=== PATIENT | male | born 1985 | race American Indian/Alaskan Native ===

== ENCOUNTER 2016-04-08 19:13 | Emergency (ER) | payer OTHER ==
[2016-04-08 19:28] VITALS: BP 129/75; PULSE 101; TEMP 98.4; BMI 25.8
--- NOTE | 2016-04-08 21:30 | PDOC ---
History of Present Illness - General Chief Complaint: Pain Stated Complaint: PAIN Time Seen by Provider: 04/08/16 20:05 History Source: Patient Exam Limitations: No Limitations - History of Present Illness Initial Comments: 04/08/16 21:25 CC continued pain to right shoulder post fall onto same during soccer x 10 days ago Occurred: reports: just prior to arrival, last week Severity: reports: moderate Pain Location: reports: upper extremity Method of Injury: Yes: direct blow, fall Past History - Past Medical History Allergies/Adverse Reactions: Allergies Allergy/AdvReac Type Severity Reaction Status Date / Time No Known Drug Allergies Allergy Verified 04/08/16 19:27 Home Medications: Ambulatory Orders NK [No Known Home Medication] 04/08/16 Other medical history: denies - Immunization History Immunization Up to Date: Yes - Psycho/Social/Smoking Cessation Hx Suicidal Ideation: No Smoking History: Never smoked Have you smoked in the past 12 months: Yes Number of Cigarettes Smoked Daily: 10 Information on smoking cessation initiated: No 'Breaking Loose' booklet given: 03/13/16 Hx Alcohol Use: No Drug/Substance Use Hx: No Substance Use Type: None Review of Systems - Review of Systems Constitutional: No: Symptoms Reported, Chills, Fever, Malaise HEENTM: No: Symptoms Reported Respiratory: No: Symptoms reported Cardiac (ROS): No: Symptoms Reported : No: Symptoms Reported Musculoskeletal: Yes: Joint Pain, Muscle Pain, Muscle Weakness. No: Joint Swelling Integumentary: No: Symptoms Reported, Rash Neurological: No: Symptoms reported *Physical Exam - Vital Signs Last Vital Signs Temp Pulse Resp BP Pulse Ox 98.4 F 101 H 20 129/75 96 04/08/16 19:24 04/08/16 19:24 04/08/16 19:24 04/08/16 19:24 04/08/16 19:24 - Physical Exam General Appearance: Yes: Appropriately Dressed. No: Apparent Distress HEENT: positive: TMs Normal, Pharynx Normal Neck: positive: Supple. negative: Tender, Rigid, Decreased range of motion, Rigidity Respiratory/Chest: positive: Lungs Clear. negative: Chest Tender, Accessory Muscle Use Musculoskeletal: positive: Decreased Range of Motion (tender prox humerus; limited ROM carlitos on active Abduction), Other (tender proximal ) Integumentary: positive: Normal Color, Dry, Warm Neurologic: positive: Other (N/V intact) ED Treatment Course - RADIOLOGY Radiology Studies Ordered: Category Date Time Status ELBOW-RIGHT [RAD] Stat Radiology 04/08/16 20:14 Completed SHOULDER-RIGHT [RAD] Stat Radiology 04/08/16 20:14 Completed Medical Decision Making - Medical Decision Making 04/08/16 21:29 please follow up with dr reich 1 week if no better *DC/Admit/Observation/Transfer Diagnosis at time of Disposition: Strain of right shoulder Qualifiers: Encounter type: initial encounter Qualified Code(s): S46.911A - Strain of unspecified muscle, fascia and tendon at shoulder and upper arm level, right arm , initial encounter - Discharge Dispostion Disposition: HOME Condition at time of disposition: Stable Admit: No - Patient Instructions Additional Instructions: Please follow with Dr Reich 1 week if no better; naprosyn 2 times daily; range area daily, 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
== END 2016-04-08 21:34 | disposition home or self-care (01) ==
LOC: JERFT 19:13
DX: S46.911A Strain of unspecified muscle, fascia and tendon at shoulder and upper arm level, right arm, initial encounter (principal); W18.39XA Other fall on same level, initial encounter; Y93.66 Activity, soccer; Y92.322 Soccer field as the place of occurrence of the external cause
CPT/HCPCS: 73030-TC-RT; 73070-TC-RT; 99281-25

== ENCOUNTER 2018-05-01 14:24 | Emergency (ER) | payer OTHER ==
[2018-05-01 14:49] VITALS: BP 137/79; PULSE 90; TEMP 98.2; BMI 24.3
--- NOTE | 2018-05-01 15:55 | PDOC ---
History of Present Illness - General Chief Complaint: Eye Problem Stated Complaint: EYE / HEAD PAIN Time Seen by Provider: 05/01/18 15:18 History Source: Patient Exam Limitations: No Limitations - History of Present Illness Initial Comments: 05/01/18 15:51 HISTORY OF PRESENT ILLNESS: 32-year-old male denies medical history presents emergency department for evaluation of bilateral eye redness and pain starting yesterday. Patient reports he was going about his usual parents then went for a 15 minute run outdoors when he began to experience eye tearing, eye redness and periorbital pain. Reports photophobia. He denies blurry vision, foreign body sensation in his eyes, fevers, chills. No recent travel or sick contacts. PAST MEDICAL HISTORY: Denies past medical history SURGICAL HISTORY: Denies ALLERGIES: No known drug allergies REVIEW OF SYSTEMS General/Constitutional: Denies fever or chills. Denies weakness, weight change. HEENT:see hpi Cardiovascular: Denies chest pain or shortness of breath. Respiratory: Denies cough, wheezing, or hemoptysis. Gastrointestinal: Denies nausea, vomiting, diarrhea or constipation. Denies rectal bleeding. Genitourinary: Denies dysuria, frequency, or change in urination. Musculoskeletal: Denies joint or muscle swelling or pain. Denies neck or back pain. Skin and breasts: Denies rash or easy bruising. Neurologic: Denies headache, vertigo, loss of consciousness, or loss of sensation. Psychiatric: Denies depression or anxiety. Endocrine: Denies increased thirst. Denies abnormal weight change. Hematologic/Lymphatic: Denies anemia, easy bleeding, or history of blood clots. Allergic/Immunologic: Denies hives or skin allergy. Denies latex allergy. PHYSICAL EXAM General Appearance: Well-appearing, appropriately dressed. No apparent distress , no intoxication. HEENT: EOMI, PERRLA, normal ENT inspection, normal voice, TMs normal, pharynx normal. No conjunctival pallor. No photophobia, scleral icterus. Conjunctival erythema present. Scleral injection noted extending through the limbus. No pupillary deformity present. No corneal abrasions or abnormal floor seen uptake. No foreign bodies present under eyelids. Neck: Supple. Trachea midline. No tenderness, rigidity, carotid bruit, stridor , lymphadenopathy, or thyromegaly. Respiratory/Chest: Lungs CTAB. No shortness of breath, chest tenderness, respiratory distress, accessory muscle use. No crackles, rales, rhonchi, stridor , wheezing, dullness Cardiovascular: RRR. S1, S2. No JVD, murmur, bradycardia, tachycardia. Vascular Pulses: Dorsalis-Pedis (R): 2+, Dorsalis-Pedis (L): 2+ Gastrointestinal/Abdominal: Normal bowel sounds. Abdomen soft, non-distended. No tenderness or rebound tenderness. No organomegaly, pulsatile mass, guarding, hernia, hepatomegaly, splenomegaly. Lymphatic: No adenopathy, tenderness. Musculoskeletal/Extremities: Normal inspection. FROM of all extremities, normal capillary refill. Pelvis Stable. No CVA tenderness. No tenderness to extremities, pedal edema, swelling, erythema or deformity. Integumentary: Appropriate color, dry, warm. No cyanosis, erythema, jaundice or rash Neurologic: hand tufter II-XII intact. Fully oriented, alert. Appropriate mood/affect. Motor strength 5/5. No appreciable EOM palsy, facial droop or sensory deficit. Past History - Past Medical History Allergies/Adverse Reactions: Allergies Allergy/AdvReac Type Severity Reaction Status Date / Time No Known Drug Allergies Allergy Verified 05/01/18 14:46 Home Medications: Ambulatory Orders NK [No Known Home Medication] 05/01/18 Anemia: No Asthma: No Cancer: No Cardiac Disorders: No CVA: No COPD: No CHF: No Dementia: No Diabetes: No GI Disorders: No Disorders: No HTN: No Hypercholesterolemia: No Liver Disease: No Seizures: No Thyroid Disease: No - Immunization History Immunization Up to Date: Yes - Suicide/Smoking/Psychosocial Hx Smoking History: Unknown if ever smoked Have you smoked in the past 12 months: No Number of Cigarettes Smoked Daily: 10 'Breaking Loose' booklet given: 03/13/16 Hx Alcohol Use: No Drug/Substance Use Hx: No Substance Use Type: None *Physical Exam - Vital Signs Last Vital Signs Temp Pulse Resp BP Pulse Ox 98.2 F 90 18 137/79 96 05/01/18 14:47 05/01/18 14:47 05/01/18 14:47 05/01/18 14:47 05/01/18 14:47 Moderate Sedation - Procedure Monitoring Vital Signs: Procedure Monitoring Vital Signs Temperature 98.2 F 05/01/18 14:47 Pulse Rate 90 05/01/18 14:47 Respiratory Rate 18 05/01/18 14:47 Blood Pressure 137/79 05/01/18 14:47 O2 Sat by Pulse Oximetry (%) 96 05/01/18 14:47 Medical Decision Making - Medical Decision Making 05/01/18 15:51 A/P: 32-year-old male with ALLERGIC conjunctivitis EYE EXAMINATION: Visual acuity: 20/20 in the left eye, 20/20 in the right eye, near, uncorrected The lid and lashes are normal. Extraocular movements are intact. The conjunctiva is erythematous with scleral injection and clear discharge The corneal surface is normal post tetracaine and fluorescein. There is no corneal abrasion or foreign body. There is no abnormal fluorescein uptake. The pupils are equal, round and reactive to light. The fundus shows normal vessels and normal discs. Discharge home with instructions to take second-generation hand antihistamines, Zaditor eyedrops and recommendation for ophthalmology follow-up. *DC/Admit/Observation/Transfer Diagnosis at time of Disposition: Allergic conjunctivitis of both eyes - Discharge Dispostion Disposition: HOME Condition at time of disposition: Stable Decision to Admit order: No - Referrals Referrals: Fabby Lee MD [Primary Care Provider] - Annette Segura MD [Staff Physician] - - Patient Instructions Additional Instructions: Rest, avoid rubbing eyes Wash hands frequently as this is very contagious Wash hands, use eye drops as directed, wash hands after use Do not share eye ointment with other person to may become infected as this will infect them Take Claritin, Zyrtec or fexofenadine to help control redness and swelling. Purchased at a door eyedrops to help with eye relief. You've been given a referral for an inspector receiving. All for reevaluation if symptoms do not improve in 3 days. Return to the ER for any concerns. Avoid contact with others until redness and discharge is gone from eyes. Followup with ophthalmology or private physician as needed - Post Discharge Activity
== END 2018-05-01 15:57 | disposition home or self-care (01) ==
LOC: JERFT 14:24
DX: H10.13 Acute atopic conjunctivitis, bilateral (principal)
CPT/HCPCS: 99281-25

== ENCOUNTER 2018-11-16 19:44 | Emergency (ER) | payer BC, OTHER ==
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
[2018-11-16 20:13] VITALS: BP 131/77; PULSE 89; TEMP 98.5; BMI 26.6
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
== END 2018-11-16 20:37 | disposition home or self-care (01) ==
LOC: JERFT 19:44
DX: S16.1XXA Strain of muscle, fascia and tendon at neck level, initial encounter (principal); V48.5XXA Car driver injured in noncollision transport accident in traffic accident, initial encounter; Y92.414 Local residential or business street as the place of occurrence of the external cause; Y93.89 Activity, other specified; Y99.8 Other external cause status
CPT/HCPCS: 99281-25

== ENCOUNTER 2019-03-03 20:20 | Emergency (ER) | payer BC, OTHER ==
[2019-03-03 20:27] VITALS: BP 134/75; PULSE 85; TEMP 98.3; BMI 25.8
[2019-03-03] MEDS ORDERED: KETOROLAC TROMETHAMINE 30 MG/1 ML VIAL IM ONE (22:02)
--- NOTE | 2019-03-03 22:04 | PDOC ---
*Physical Exam - Vital Signs Last Vital Signs Temp Pulse Resp BP Pulse Ox 98.3 F 85 18 134/75 99 03/03/19 20:25 03/03/19 20:25 03/03/19 20:25 03/03/19 20:25 03/03/19 20:25 - Physical Exam 03/03/19 22:00 Medical Decision Making - Medical Decision Making 03/03/19 22:01 33 yo M with no PMH presents to ED with left sided neck pain x 4 days. -Toradol Discharge - Discharge Information Problems reviewed: Yes Clinical Impression/Diagnosis: Cervical strain Qualifiers: Encounter type: initial encounter Qualified Code(s): S16.1XXA - Strain of muscle, fascia and tendon at neck level, initial encounter Condition: Stable Disposition: HOME - Admission Yes - Follow up/Referral Referrals: Fabby Lee MD [Primary Care Provider] - - Patient Discharge Instructions Patient Printed Discharge Instructions: DI for Cervical Muscle Strain Additional Instructions: Please take medication as prescribed. As discussed, if your symptoms do not improve in 5-7 days, please follow up with an orthopedics for further evaluation and a possible MRI or physical therapy. If you experience any loss of sensation to your extremities, any loss of bowel or bladder function, please return to the ER. - Post Discharge Activity
[2019-03-03] MEDS ORDERED: KETOROLAC TROMETHAMINE 30 MG/1 ML VIAL ONE (22:06)
--- NOTE | 2019-03-03 22:07 | PDOC ---
History of Present Illness - General Chief Complaint: Pain Stated Complaint: NECK PAIN Time Seen by Provider: 03/03/19 21:45 - History of Present Illness Initial Comments: 03/03/19 22:06 CHIEF COMPLAINT: neck pain HISTORY OF PRESENT ILLNESS: 33 yo M with no PMH presents to ED with left sided neck pain x 4 days. Patient reports that he was moving the air conditioning unit in his home when the pain began. Patient describes the pain as a cramping and worse with movement. No recent travel or sick contacts. PAST MEDICAL HISTORY: Denies past medical history FAMILY HISTORY: Denies SOCIAL HISTORY: Denies tobacco, alcohol, illicit drug use. SURGICAL HISTORY: Denies ALLERGIES: No known drug allergies REVIEW OF SYSTEMS General/Constitutional: Denies fever or chills. Denies weakness, weight change. HEENT: Denies change in vision. Denies ear pain or discharge. Denies sore throat. Cardiovascular: Denies chest pain or shortness of breath. Respiratory: Denies cough, wheezing, or hemoptysis. Gastrointestinal: Denies nausea, vomiting, diarrhea or constipation. Denies rectal bleeding. Genitourinary: Denies dysuria, frequency, or change in urination. Musculoskeletal: Neck tightness/stiffness x 4 days. Skin and breasts: Denies rash or easy bruising. Neurologic: Denies headache, vertigo, loss of consciousness, or loss of sensation. Psychiatric: Denies depression or anxiety. PHYSICAL EXAM General Appearance: Well-appearing, appropriately dressed. No apparent distress , no intoxication. HEENT: EOMI, PERRLA, normal ENT inspection, normal voice, TMs normal, pharynx normal. No conjunctival pallor. No photophobia, scleral icterus. Neck: Supple. Trachea midline. No tenderness, rigidity, carotid bruit, stridor , lymphadenopathy, or thyromegaly. Respiratory/Chest: Lungs CTAB. No shortness of breath, chest tenderness, respiratory distress, accessory muscle use. No crackles, rales, rhonchi, stridor , wheezing, dullness Cardiovascular: RRR. S1, S2. No JVD, murmur, bradycardia, tachycardia. Vascular Pulses: Dorsalis-Pedis (R): 2+, Dorsalis-Pedis (L): 2+ Gastrointestinal/Abdominal: Normal bowel sounds. Abdomen soft, non-distended. No tenderness or rebound tenderness. No organomegaly, pulsatile mass, guarding , hernia, hepatomegaly, splenomegaly. Lymphatic: No adenopathy, tenderness. Musculoskeletal/Extremities: Normal inspection. FROM of all extremities, normal capillary refill. Pelvis Stable. No CVA tenderness. No tenderness to extremities, pedal edema, swelling, erythema or deformity. Integumentary: Appropriate color, dry, warm. No cyanosis, erythema, jaundice or rash Neurologic: brick tosser II-XII intact. Fully oriented, alert. Appropriate mood/affect. Motor strength 5/5. No appreciable EOM palsy, facial droop or sensory deficit. 03/03/19 22:06 Past History - Past Medical History Allergies/Adverse Reactions: Allergies Allergy/AdvReac Type Severity Reaction Status Date / Time No Known Drug Allergies Allergy Verified 03/03/19 20:27 Home Medications: Ambulatory Orders Cyclobenzaprine HCl [Flexeril 10 mg] 10 mg PO HS PRN #10 tablet 11/16/18 Ibuprofen [Motrin -] 600 mg PO TID #30 tablet 11/16/18 Anemia: No Asthma: No Cancer: No Cardiac Disorders: No CVA: No COPD: No CHF: No Dementia: No Diabetes: No GI Disorders: No Disorders: No HTN: No Hypercholesterolemia: No Liver Disease: No Seizures: No Thyroid Disease: No - Immunization History Immunization Up to Date: Yes - Psycho Social/Smoking Cessation Hx Smoking History: Never smoked Have you smoked in the past 12 months: No Number of Cigarettes Smoked Daily: 10 'Breaking Loose' booklet given: 03/13/16 Hx Alcohol Use: No Drug/Substance Use Hx: No Substance Use Type: None *Physical Exam - Vital Signs Last Vital Signs Temp Pulse Resp BP Pulse Ox 98.3 F 85 18 134/75 99 03/03/19 20:25 03/03/19 20:25 03/03/19 20:25 03/03/19 20:25 03/03/19 20:25 Medical Decision Making - Medical Decision Making 03/03/19 22:06 33 yo M with no PMH presents to ED with left sided neck pain x 4 days. -Toradol IM Patient refuses flexeril, ibuprofen scripts, stating that he still has those at home. . Advised patient to take medication as prescribed and follow up with ortho if symptoms persist. Advised patient of signs and symptoms for return to ED. Patient verbalized understanding and agrees to plan. Discharge - Discharge Information Problems reviewed: Yes Clinical Impression/Diagnosis: Cervical strain Qualifiers: Encounter type: initial encounter Qualified Code(s): S16.1XXA - Strain of muscle, fascia and tendon at neck level, initial encounter Condition: Stable Disposition: HOME - Admission No - Follow up/Referral Referrals: Fabby Lee MD [Primary Care Provider] - - Patient Discharge Instructions Patient Printed Discharge Instructions: DI for Cervical Muscle Strain Additional Instructions: Please take medication as prescribed. As discussed, if your symptoms do not improve in 5-7 days, please follow up with an orthopedics for further evaluation and a possible MRI or physical therapy. If you experience any loss of sensation to your extremities, any loss of bowel or bladder function, please return to the ER. - Post Discharge Activity
== END 2019-03-03 22:18 | disposition home or self-care (01) ==
LOC: JER 20:20 → JERFT 20:20 → JER 22:18
PROC: 3E0233Z Introduction of Anti-inflammatory into Muscle, Percutaneous Approach (ICD-10-PCS; principal; 2019-03-03)
DX: S16.1XXA Strain of muscle, fascia and tendon at neck level, initial encounter (principal); X50.9XXA Other and unspecified overexertion or strenuous movements or postures, initial encounter; Y93.E9 Activity, other interior property and clothing maintenance; Y92.038 Other place in apartment as the place of occurrence of the external cause; Y99.8 Other external cause status
CPT/HCPCS: 99282-25

== ENCOUNTER 2022-01-31 12:03 | Emergency (ER) | payer OTHER, BC ==
[2022-01-31 12:11] VITALS: BP 109/72; PULSE 96; RESP 18; TEMP 98.1; BMI 26.6
[2022-01-31] MEDS ORDERED: LIDOCAINE 5% TOPICAL PATCH TP ONE (12:39)
[2022-01-31] MEDS ORDERED: KETOROLAC TROMETHAMINE 30 MG/1 ML VIAL IM ONE (12:39)
[2022-01-31] MEDS ORDERED: ACETAMINOPHEN 325 MG TABLET (FP) PO ONE (12:39)
[2022-01-31] MEDS ORDERED: ACETAMINOPHEN 325 MG TABLET (FP) ONE (12:41)
[2022-01-31] MEDS ORDERED: LIDOCAINE 5% TOPICAL PATCH ONE (12:41)
[2022-01-31] MEDS ORDERED: KETOROLAC TROMETHAMINE 30 MG/1 ML VIAL ONE (12:41)
[2022-01-31] MEDS ORDERED: LIDOCAINE PATCH REMOVAL MC SCH (22:00)
== END 2022-01-31 12:53 | disposition home or self-care (01) ==
LOC: JERFT 12:03
PROC: 3E0233Z Introduction of Anti-inflammatory into Muscle, Percutaneous Approach (ICD-10-PCS; principal; 2022-01-31)
DX: S39.012A Strain of muscle, fascia and tendon of lower back, initial encounter (principal); X50.0XXA Overexertion from strenuous movement or load, initial encounter
CPT/HCPCS: 99285-25

== ENCOUNTER 2022-10-31 14:54 | Emergency (ER) | payer OTHER, BC ==
[2022-10-31 15:00] VITALS: BP 116/76; PULSE 93; RESP 20; TEMP 98.5; BMI 25.0
== END 2022-10-31 16:37 | disposition home or self-care (01) ==
LOC: JERFT 14:54
DX: M54.50 Low back pain, unspecified (principal); X50.0XXA Overexertion from strenuous movement or load, initial encounter; Y99.0 Civilian activity done for income or pay
CPT/HCPCS: 99283-25

== ENCOUNTER 2024-03-24 21:15 | Emergency (ER) | payer BC, OTHER ==
[2024-03-24 21:22] VITALS: BP 136/85; PULSE 101; RESP 18; TEMP 98.8; BMI 25.0
== END 2024-03-24 23:15 | disposition home or self-care (01) ==
LOC: JERFT 21:15
DX: J10.1 Influenza due to other identified influenza virus with other respiratory manifestations (principal); R05.9 Cough, unspecified; R09.81 Nasal congestion; R09.3 Abnormal sputum; Z20.822 Contact with and (suspected) exposure to COVID-19
CPT/HCPCS: 0241U-QW; 71046-TC-FY; 99284-25

== ENCOUNTER 2024-05-26 08:36 | Emergency (ER) | payer BC, OTHER ==
[2024-05-26 08:53] VITALS: BP 115/74; PULSE 86; RESP 17; TEMP 97.9; BMI 25.0
[2024-05-26] MEDS ORDERED: KETOROLAC TROMETHAMINE 30 MG/1 ML VIAL ONE (10:12)
[2024-05-26] MEDS ORDERED: LIDOCAINE 4% PATCH TP ONE (10:12)
[2024-05-26] MEDS: KETOROLAC TROMETHAMINE 30 MG/1 ML VIAL IM ONE (10:33)
[2024-05-26] MEDS: LIDOCAINE 4% PATCH TP ONE (10:33)
[2024-05-26] MEDS ORDERED: LIDOCAINE PATCH REMOVAL MC ONE (22:00)
== END 2024-05-26 12:15 | disposition home or self-care (01) ==
LOC: JER 08:36
PROC: 3E0233Z Introduction of Anti-inflammatory into Muscle, Percutaneous Approach (ICD-10-PCS; principal; 2024-05-26)
DX: M54.16 Radiculopathy, lumbar region (principal); G89.29 Other chronic pain
CPT/HCPCS: 72100-TC-FY; 99284-25

== ENCOUNTER 2024-06-15 06:27 | Day surgery (SDC) | payer BC, OTHER ==
[2024-06-13 13:54] VITALS: BMI 25.0
[2024-06-15] MEDS ORDERED: DEXAMETHASONE SOD PHOSPHATE 10 MG/1 ML VIAL ONE (07:28)
[2024-06-15] MEDS ORDERED: LIDOCAINE HCL/PF 1% SDV 5ML VIAL ONE (07:28)
[2024-06-15] MEDS: DEXAMETHASONE SOD PHOSPHATE 10 MG/1 ML VIAL IVPUSH ONE ×2 (07:42→11:08)
[2024-06-15] MEDS: LIDOCAINE 1% P/F 10 MG/ML VIAL INF ONE (07:46)
[2024-06-15] MEDS: LIDOCAINE HCL 1% PRESERVATIVE FREE - 30ML VIAL IJ ONE ×2 (07:46→11:05)
[2024-06-15] MEDS: IOHEXOL 180 MG/1 ML ML IJ ONE ×2 (07:47→11:07)
[2024-06-15] MEDS ORDERED: ACETAMINOPHEN 500 MG TABLET (FP) PO PRN (09:03)
[2024-06-15 11:25] VITALS: PULSE 74
[2024-06-15 11:37] VITALS: BP 112/72; RESP 20; TEMP 98
== END 2024-06-15 11:37 | disposition home or self-care (01) ==
LOC: JASU-SURG 06:27
PROVIDERS: ATTEND Pain Medicine Pain Medicine
PROC: 3E0R3BZ Introduction of Anesthetic Agent into Spinal Canal, Percutaneous Approach (ICD-10-PCS; 2024-06-15)
PROC: 3E0R33Z Introduction of Anti-inflammatory into Spinal Canal, Percutaneous Approach (ICD-10-PCS; principal; 2024-06-15 08:00)
DX: M54.16 Radiculopathy, lumbar region (principal)
CPT/HCPCS: 76000-TC-FY; J1100